=== PATIENT | female | born 1975 | race Caucasian/White ===

== ENCOUNTER 2017-01-11 16:23 | Observation (INO) ==
[2017-01-11] MEDS ORDERED: Aspirin 81 MG TAB.CHEW PO ONE (16:50)
[2017-01-11] MEDS ORDERED: Nitroglycerin 0.4 MG TAB.SUBL SL PRN (16:50)
--- NOTE | 2017-01-11 17:07 | Emergency Department Note ---
Disposition Clinical Impression: Abnormal EKG Chest pain Qualifiers: Chest pain type: chest pain on breathing Qualified Code(s): R07.1 - Chest pain on breathing; R07.81 - Pleurodynia Right knee pain Qualifiers: Chronicity: acute Qualified Code(s): M25.561 - Pain in right knee Disposition: Admitted As Inpatient Condition: Fair Time of Disposition: 21:16 Chest Pain HPI - General Chief Complaint: ED Chest Pain Stated Complaint: Chest Pain Source: patient Limitations: no limitations Vital Signs Reviewed: Yes Nursing Notes Reviewed: Yes - History of Present Illness HPI Narrative: Patient is a 41-year-old female who drove to the ED for just complaint of chest pain 4 days. Patient states pain started suddenly 4 days ago left upper Arava chest and underneath her left breast along inframammary line. Patient states pain 7 out of 10 sharp with pressure and pleuritic. Patient states taking deep breaths worsens pain. Patient states her symptoms are worse today. Patient states this has never happened before. Patient has no previous cardiac history. Patient smokes half pack a day, patient denies illicit drug use and alcohol use. Patient has no family history for sudden cardiac arrest or any family members from cardiac rest at a young age Severity scale (1-10): 10 - Related Data Home Medications Medication Instructions Recorded Confirmed ALPRAZolam [Xanax 1 MG Tablet] 1 mg PO BID PRN 08/03/16 08/03/16 Allergies Allergy/AdvReac Type Severity Reaction Status Date / Time No Known Allergies Allergy Verified 12/04/15 20:15 Review of Systems: Patient states that place her hands above her head increases her discomfort. Patient denies any fevers, chills, nausea, vomiting, diarrhea. All systems ED: reviewed and negative except as stated. 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 - Social History Smoking Status: Current every day smoker Alcohol use: Reports: none Drug use: Reports: none Physical Exam Vital Signs Temperature 97.7 F 01/11/17 16:24 Pulse Rate 68 01/11/17 16:24 Respiratory Rate 16 01/11/17 16:24 Blood Pressure 106/72 01/11/17 16:24 O2 Sat by Pulse Oximetry 99 01/11/17 16:24 Temperature 97.7 F 01/11/17 16:24 Pulse Rate 68 01/11/17 16:24 Respiratory Rate 16 01/11/17 16:24 Blood Pressure 106/72 01/11/17 16:24 O2 Sat by Pulse Oximetry 99 01/11/17 16:24 Oxygen Delivery Oxygen Delivery Room Air -General Appearance: Patient is a 41-year-old female is alert and oriented 3 and in no acute distress. Patient appears uncountable secondary to chest discomfort patient is nondiaphoretic -Neurological exam: Cranial nerves II-12 intact, no focal deficits observed, strength equal 5/5 bilaterally in upper and lower extremities, cerebellar motion test negative. Negative loss of sensation - Head Head exam: atraumatic, normocephalic, normal inspection - Eye Eye exam: Present: normal appearance, PERRL, EOMI, negative for scleral icterus negative for conjunctival pallor - ENT ENT exam: normal exam, normal oropharynx, mucous membranes moist - Neck Neck exam: Present: normal inspection, full ROM, trachea midline, negative JVD - Chest Chest inspection: Present: Patient has bilateral equal rise and fall of chest wall. Non-tender to palpation. - Respiratory Respiratory exam: Clear to auscultation bilaterally without wheezes rales or rhonchi. Patient winces secondary to discomfort with taking a deep breath and favors the left side Cardiovascular Cardiovascular exam: Present: regular rate, normal rhythm, normal heart sounds, without murmurs rubs or gallops. - Abdominal Exam Abdominal exam: Present: soft, nondistended, Non-Tender light and deep palpation in all quadrants. Bowel sounds normoactive throughout all 4 quadrants. Negative for hyper or hyperresonance. - Extremities Exam Extremities exam: Present: normal inspection, full ROM, radial pulses equal bilaterally. Pedal pulses equal bilaterally no pedal edema - Back Exam Back exam: Present: normal inspection, full ROM. Absent: tenderness, CVA tenderness (R), CVA tenderness (L) - Psychiatric Psychiatric exam: Present: normal affect, normal mood - Skin Skin exam: Present: warm, dry, intact, normal color - General Limitations: no limitations General appearance: alert, in no apparent distress Course - Reevaluation(s) Reevaluation #1: Cardiac workup ordered labs, chest x-ray, troponin Time: 17:13 Reevaluation #2: Awaiting Nitrol trial Time: 17:26 Reevaluation #3: Patient received 1 dose of nitroglycerin with no effect. We will repeat every 5 minutes and reassessed Time: 17:39 - Consultations Consultation #1: Patient was sent for admission by Lucila MEJIA Time: 18:48 Consultation #2: Patient's case was discussed with Dr. Greco the dish person who recommended admitting patient for troponin trending Time: 17:00 Vital Signs Temperature 97.7 F 01/11/17 16:24 Pulse Rate 68 01/11/17 16:24 Respiratory Rate 16 01/11/17 16:24 Blood Pressure 106/72 01/11/17 16:24 O2 Sat by Pulse Oximetry 99 01/11/17 16:24 Temperature 97.7 F 01/11/17 16:24 Pulse Rate 65 01/11/17 18:28 Respiratory Rate 17 01/11/17 19:00 Blood Pressure 106/96 01/11/17 19:00 O2 Sat by Pulse Oximetry 99 01/11/17 18:28 Oxygen Delivery Oxygen Delivery Room Air Chest Pain - MDM Narrative Medical decision making narrative: Patient is concerning for chest pain secondary to possible RI, or dissection, PE , pneumonia Patient denies any recent fevers chills nausea vomiting diarrhea or signs of infection etiology. Patient does have pleuritic type chest pain. Patient has increased discomfort when taking a deep breath on left lower lung neumann. Patient has no previous history for DVT or PE. Patient denies any rheumatologic or hematologic abnormalities edema and no prior cardiac history. Ordered CBC, BMP, troponin, chest x-ray, repeat EKG, nitroglycerin trial, IV normal saline. Patient's heart score is 3 Patient had right knee pain complaint and x-ray showed no abnormalities Patient had no resolution from nitroglycerin trial, patient is given IV morphine which seemed to help. Dr. Greco of cardiology was consulted secondary to abnormal EKG showing acute RI and read and patient's persistent chest pain. Dr. Greco's recommendation was to admit to hospitalist for trending of troponins. Patient understands and agrees to treatment and plan and accepts decision to admit to the hospital Patient was accepted to hospitalist for further workup and treatment. - Lab Data Lab results reviewed: Yes I reviewed the patient's lab results. Lab results narrative: Short CBC 01/11/17 Range/Units 16:58 WBC 8.9 (4.3-11.1) K/mcL Hgb 13.8 (11.5-15.4) g/dL Hct 41.2 (35.3-44.9) % Plt Count 218 (140-400) K/mcL Neutrophils # 5.1 (1.6-8.9) K/mcL BMP 01/11/17 Range/Units 16:58 Sodium 138 (136-145) mEq/L Potassium 3.7 (3.5-4.5) mEq/L Chloride 105 (98-109) mEq/L Carbon Dioxide 26 (19-29) mEq/L BUN 10 (7-20) mg/dL Creatinine 0.72 (0.57-1.11) mg/dL Glucose 59 L (70-99) mg/dL Calcium 9.1 (8.6-10.8) mg/dL Cardiac Enzymes 01/11/17 Range/Units 16:58 Troponin I 0.00 (0-0.03) ng/mL Result diagrams: 01/11/17 16:58 01/11/17 16:58 Lab Results 01/11/17 01/11/17 01/11/17 Range/Units 16:58 16:58 16:58 WBC 8.9 (4.3-11.1) K/mcL RBC 4.54 (3.82-4.97) M/mcL Hgb 13.8 (11.5-15.4) g/dL Hct 41.2 (35.3-44.9) % MCV 90.7 (83.0-100.0) fL MCH 30.4 (28.0-33.3) pg MCHC 33.5 (31.6-35.5) g/dL RDW 13.2 (11.5-14.5) % Plt Count 218 (140-400) K/mcL MPV 10.8 (9.4-12.4) fL Immature Gran % 0.1 (0-4) % Seg Neutrophils % 57.2 % Lymphocytes % 36.6 % Monocytes % 5.1 % Eosinophils % 0.8 % Basophils % 0.2 % Neutrophils # 5.1 (1.6-8.9) K/mcL Lymphocytes # 3.3 (0.6-4.6) K/mcL Monocytes # 0.5 (0.0-1.3) K/mcL Eosinophils # 0.1 (0.0-0.6) K/mcL Basophils # 0.0 (0.0-0.2) K/mcL D-Dimer (0-500) ng/mLFEU Sodium 138 (136-145) mEq/L Potassium 3.7 (3.5-4.5) mEq/L Chloride 105 (98-109) mEq/L Carbon Dioxide 26 (19-29) mEq/L BUN 10 (7-20) mg/dL Creatinine 0.72 (0.57-1.11) mg/dL Est GFR ( Amer) > 60 (> 60) Est GFR (Non-Af Amer) > 60 (> 60) BUN/Creatinine Ratio 14 (6-26) Glucose 59 L (70-99) mg/dL Calculated Osmolality 283 (280-300) Calcium 9.1 (8.6-10.8) mg/dL Troponin I 0.00 (0-0.03) ng/mL Lipase 43 (8-78) Units/L TSH 0.473 (0.350-4.840) mcIU/mL /01/20 Range/Units 16:58 WBC (4.3-11.1) K/mcL RBC (3.82-4.97) M/mcL Hgb (11.5-15.4) g/dL Hct (35.3-44.9) % MCV (83.0-100.0) fL MCH (28.0-33.3) pg MCHC (31.6-35.5) g/dL RDW (11.5-14.5) % Plt Count (140-400) K/mcL MPV (9.4-12.4) fL Immature Gran % (0-4) % Seg Neutrophils % % Lymphocytes % % Monocytes % % Eosinophils % % Basophils % % Neutrophils # (1.6-8.9) K/mcL Lymphocytes # (0.6-4.6) K/mcL Monocytes # (0.0-1.3) K/mcL Eosinophils # (0.0-0.6) K/mcL Basophils # (0.0-0.2) K/mcL D-Dimer 325 (0-500) ng/mLFEU Sodium (136-145) mEq/L Potassium (3.5-4.5) mEq/L Chloride (98-109) mEq/L Carbon Dioxide (19-29) mEq/L BUN (7-20) mg/dL Creatinine (0.57-1.11) mg/dL Est GFR ( Amer) (> 60) Est GFR (Non-Af Amer) (> 60) BUN/Creatinine Ratio (6-26) Glucose (70-99) mg/dL Calculated Osmolality (280-300) Calcium (8.6-10.8) mg/dL Troponin I (0-0.03) ng/mL Lipase (8-78) Units/L TSH (0.350-4.840) mcIU/mL - Radiology Data Radiology results reviewed: Yes I reviewed the patient's radiology results. Chest X-Ray 01/11/17 16:28 IMPRESSION: No acute process. D/ / Ross Crowe MD / Ross Crowe MD Interpreting Provider: Ross Crowe MD Knee X-Ray 01/11/17 17:07 IMPRESSION: No acute abnormality of the knee. D/ / Ross Crowe MD / Ross Crowe MD Interpreting Provider: Ross Crowe MD - EKG Data EKG attestation: Yes I reviewed and interpreted this EKG. EKG results narrative: EKG taken 01/11/2017 at 1630 hrs. shows a sinus rhythm with mild ST elevation in V1 and V2, inverted T waves in aVR and aVL no previous EKG for comparison. Repeat EKG taken in January 2017 1650 hrs. shows no change from previous EKG Heart Score - Score History: Moderately Suspicious EKG: Non Specific repolarisation Disturbance Age: Less than 45 Risk Factors: 1-2 risk factors Troponin: Less than normal limit HEART Score Total: 3
[2017-01-11] MEDS ORDERED: Aspirin 325 MG TABLET PO ONE (17:13)
[2017-01-11] MEDS ORDERED: *HR* Heparin 5,000 UNIT/ML VIAL IVP PRN ×2 (17:13)
[2017-01-11] MEDS ORDERED: 0.9 % Sodium Chloride 1,000 ML IVC ONE (17:13)
[2017-01-11] MEDS ORDERED: *HR* Heparin 5,000 UNIT/ML VIAL IVP ONE (17:13)
[2017-01-11 17:14] LABS: Basophils % 0.2 %; Eosinophils # 0.1 K/mcL (0.0-0.6); Eosinophils % 0.8 %; Hematocrit 41.2 % (35.3-44.9); Hemoglobin 13.8 g/dL (11.5-15.4); Immature Granulocytes % 0.1 % (0-4); Lymphocytes # 3.3 K/mcL (0.6-4.6); Lymphocytes % 36.6 %; Mean Corpuscular HGB Conc 33.5 g/dL (31.6-35.5); Mean Corpuscular Hemoglobin 30.4 pg (28.0-33.3); Mean Corpuscular Volume 90.7 fL (83.0-100.0); Mean Platelet Volume 10.8 fL (9.4-12.4); Monocytes # 0.5 K/mcL (0.0-1.3); Monocytes % 5.1 %; Neutrophils # 5.1 K/mcL (1.6-8.9); Platelet Count 218 K/mcL (140-400); Red Blood Count 4.54 M/mcL (3.82-4.97); Red Cell Distribution Width 13.2 % (11.5-14.5); Segmented Neutrophils % 57.2 %
[2017-01-11] MEDS ORDERED: Heparin 25,000 UNIT/500 ML D5W 25,000 UNIT/500 ML MLS IVC SCH (17:15)
[2017-01-11 17:22] LABS: BUN/Creatinine Ratio 14 (6-26); Blood Urea Nitrogen 10 mg/dL (7-20); Calcium 9.1 mg/dL (8.6-10.8); Carbon Dioxide 26 mEq/L (19-29); Chloride 105 mEq/L (98-109); Glucose 59 mg/dL (70-99); Osmolality,Calculated 283 (280-300); Potassium 3.7 mEq/L (3.5-4.5); Sodium 138 mEq/L (136-145); eGFR For African Americans > 60 (> 60); eGFR For Non-African Americans > 60 (> 60)
[2017-01-11] MEDS ORDERED: Ondansetron 4 MG/2 ML VIAL IVP ONE (17:36)
[2017-01-11] MEDS ORDERED: *HR* Morphine 2 MG/ML SYRINGE IVP PRN (17:37)
[2017-01-11 17:46] LABS: Thyroid Stimulating Hormone 0.473 mcIU/mL (0.350-4.840)
[2017-01-11 18:20] LABS: Lipase 43 Units/L (8-78)
[2017-01-11] MEDS ORDERED: Ketorolac 15 MG/ML VIAL IVP ONE (18:47)
[2017-01-11] MEDS ORDERED: Naloxone 0.4 MG/ML INJ IVP PRN (21:08)
[2017-01-11] MEDS ORDERED: tiZANidine 4 MG TABLET PO PRN (21:13)
[2017-01-11] MEDS ORDERED: D5% in 0.45% NACL 1,000 ML IVC SCH (21:15)
[2017-01-11] MEDS ORDERED: 0.9 % Sodium Chloride 1,000 ML IVC SCH (21:15)
--- NOTE | 2017-01-11 21:24 | Internal Med History&Physical ---
Date of Encounter: 01/11/17 Time of Encounter: 21:17 Assessment and Plan (1) Chest pain Current visit: Yes Status: Acute suspect MSK related given hx. Trial of zanaflex, NSAIDs Qualifiers: Chest pain type: intercostal pain Qualified Code(s): R07.82 - Intercostal pain (2) Abnormal EKG Current visit: Yes Status: Acute trend trop, repeat ekg in the a.m, exercise stress testing, consult cards to eval (3) Right knee pain Current visit: Yes Status: Acute XR was normal in the ED Qualifiers: Chronicity: acute Qualified Code(s): M25.561 - Pain in right knee (4) Anxiety Current visit: Yes Status: Acute xanax Internal Medicine - H&P: HPI Chief complaint: Chest pain History of present illness: Ms. Serrano is a 41 year old female with hx of anxiety who presents with chest pain evaluation. She started to noticed left sided chest pain under left breast approx 4 days ago with a pleuritic component with deep breathing. Today, she was reaching up to pull the string to the attic when she suffered from aggravation of chest pain. It appears that she was able to palpate a tender spot around left breast. Described as sharp, localized and without radiation. May be associated with postural changes. She denies any recent long distance travel/hospitalization/risk factors. Denies any personal of family hx of CAD/ [place]. In the ED, she reports with nitro helped. She smokes 1/2 PPD for a many years. D-dimer in ED 325. EKG was abnormal with rate 63 personally reviewed, T- wave inversion and possible ischemic changes. Trop normal. Past Med Surg Social Fam HX - Past Medical History Medical history: other Psychiatric history: anxiety - Past Surgical History Surgical History: hysterectomy - Social History Smoking Status: Current every day smoker Packs per day: 0.5-1 Smokeless Tobacco Status: No Alcohol use: none Drug use: none - Family History Mother Living Status: Age at : 63 Hx Family Cardiac Disorders: No Hx Family Respiratory Disorders: Yes Hx Family Cancer: Yes Hx Family Endocrine Disorder: No Hx Family Musculoskeletal Disorders: No Hx Family Neuromuscular Disorders: No Hx Family Neurologic Disorders: No Hx Family HEENT Disorders: No Hx Family Autoimmune Disorders: Yes Hx Family Reproductive Disorders: No Hx Family Psychosocial Disorders: No Hx Family Medical Disorders: No Internal Medicine - H&P: Meds ALPRAZolam [Xanax 1 MG Tablet] 1 mg PO QID 08/03/16 [History] Allergies No Known Allergies Allergy (Verified 12/04/15 20:15) All Systems PM: A 10-system review of systems was performed and is negative for pertinent findings except as documented above in the HPI. Review of systems: ROS 14 point review of systems reviewed as best as possible given presentation. Pertinent positive or negative as per HPI or otherwise reviewed as negative - Constitutional Vitals: Temp Pulse Resp BP Pulse Ox 97.7 F 65 17 106/96 99 01/11/17 16:24 01/11/17 18:28 01/11/17 19:00 01/11/17 19:00 01/11/17 18:28 Exam: General - AAO x 3 Psych - Appropriate affect/speech. No agitation Eyes - JOVANNA. Eye lids intact. No scleral icterus ENT - Oral mucosa pink, dentition intact. External ear clear/dry/intact. No thyromegaly Lymphatics - No cervical/inguinal lympadenopathy Neuro - No gross peripheral or central neuro deficits with intact CN 2-12 exam Heart - Sinus. RRR. S1 and S2 present. No added HS/murmurs appreciated. No elevated JVD appreciated. No calf swellings/erythema Lung - Adequate air entry b/l, No crackes/wheezes appreciated GI - Soft, non-tender. No hepatosplenomegaly/ascities. BS+ - No CVA/suprapubic tenderness or palpable bladder distension Skin - Intact. No rash/petechiae/ecchymosis. Warm extremities MSK - Tender spot along left breast. Joints with normal ROM. No joint swellings Internal Med - H&P Results - Labs CBC & Chem 7: 01/11/17 16:58 01/11/17 16:58
[2017-01-11] MEDS ORDERED: Ibuprofen 400 MG TABLET PO PRN (21:27)
--- NOTE | 2017-01-11 21:46 | Emergency Department Note ---
START Narrative - START START: I examined this patient and my medical decision-making was reviewed with the Resident Physician. I agree with the documented findings, disposition and treatment plan as described except to the extent set forth below. In summary 41 -year-old female with chest pain for 4 days. Her pain is atypical in nature. She has no inspiratory or pleuritic pain. Her EKG is very abnormal on arrival and she has questionable elevation in the anterior leads. She does not meet STEMI criteria. I did immediately contact the sales professional Dr. Greco who has evaluated the EKG and agrees that this is not a STEMI. We will admit the patient for further evaluation. Cardiac biomarkers are negative. She did receive a nitroglycerin trial as well as aspirin. Morphine was a geotechnical intern for pain. Serial EKGs were obtained emergency department which showed no evidence of worsening EKG changes. I am concerned about T-wave pathology in the inferior leads as well as atypical changes in V1 and V2. Patient will need cardiology consultation for abnormal EKG in the setting of chest pain. Greater than 35 minutes of critical care time was spent resuscitating this female patient with abnormal EKG findings requiring nitroglycerin administration. This was excluding billable procedures.
[2017-01-11] MEDS: ALPRAZolam 1 MG TABLET PO SCH (22:07)
[2017-01-12 06:23] VITALS: BP 110/74
[2017-01-12] MEDS ORDERED: Nicotine 14 MG PATCH.TD24 TD SCH (09:00)
[2017-01-12] MEDS: ALPRAZolam 1 MG TABLET PO SCH (09:22)
[2017-01-12 09:45] LABS: Basophils % 0.3 %; Eosinophils # 0.1 K/mcL (0.0-0.6); Eosinophils % 1.6 %; Hematocrit 40.8 % (35.3-44.9); Hemoglobin 13.9 g/dL (11.5-15.4); Immature Granulocytes % 0.3 % (0-4); Lymphocytes # 2.3 K/mcL (0.6-4.6); Lymphocytes % 32.9 %; Mean Corpuscular HGB Conc 34.1 g/dL (31.6-35.5); Mean Corpuscular Hemoglobin 31.2 pg (28.0-33.3); Mean Corpuscular Volume 91.7 fL (83.0-100.0); Mean Platelet Volume 11.6 fL (9.4-12.4); Monocytes # 0.4 K/mcL (0.0-1.3); Monocytes % 6.3 %; Neutrophils # 4.1 K/mcL (1.6-8.9); Platelet Count 210 K/mcL (140-400); Red Blood Count 4.45 M/mcL (3.82-4.97); Red Cell Distribution Width 13.4 % (11.5-14.5); Segmented Neutrophils % 58.6 %
--- NOTE | 2017-01-12 09:55 | Nuclear Medicine Stress Report ---
Exercise Nuclear Stress Name: Flora Serrano Date of Study: 01/12/2017 Date: 1975 Ht: 66.0 in Medical Record#: [id number] Age: 41 Wt: 135.0 lb Gender: Female Order #: [id number] Location: [facility] IP Room: [facility] Supervising Provider: Kandice Boucher CNP Reading Physician: Chuy Carrion DO, MARLO ANDERSON FASNC Ordering Physician: Samuel Griffin MD Primary Care Physician: None Stress Technologist: Pedrito Chris CRT Vegetable Buncher: Lucy Cruz Indications: Chest Pain Impression: Exercise ECG is negative for ischemia. The exercise capacity was good. Chest discomfort at rest. Intensity of chest discomfort did not change with exercise. Gated EF = 72%. Perfusion imaging was negative for ischemia or infarct. History: History of Smoking Stress Test Summary: Stress Test Type: Treadmill Baseline Information: Initial Heart Rate: 57 Blood Pressure: 130/64 Stress Information: Stress Time: 10 min 01 sec Test Terminated Due to (primary): Dyspnea Maximum Blood Pressure: 158/72 Maximum Heart Rate: 161 Percent Maximum Heart Rate Achieved: 90 Double Product: [id number] METS Reached: 10.9 Symptoms: Chest pain Nuclear Summary: SPECT myocardial perfusion imaging using Tc99m Sestamibi given intravenously was performed at rest and following cardiac stress testing. The resting images were obtained following initial dose of 11.4 mCi. Following stress an additional dose of 35.6 mCi was given at peak exercise or 30 seconds post regadenoson infusion. Medication Given: Time Medication Dose Units Route Findings: Stress Note * Resting ECG demonstrated normal sinus rhythm. * No baseline arrhythmias were noted. * Exercise ECG is negative for ischemia. * No arrhythmias were noted during stress. * The exercise capacity was good. * Chest discomfort at rest. Intensity of chest discomfort did not change with exercise. Hemodynamic responses * Normal hemodynamic responses to exercise. Study Quality * Study quality is average. Gated EF % * Gated EF = 72%. Left Ventricle * The left ventricle is not dilated. * LVEDV = 81 mL. NORMALS * Normal wall motion. * Normal Segmental Perfusion in rest. * Normal segmental perfusion in stress. TID * No evidence of transient ischemic dilatation. TID ratio * TID ratio = 0.98. Lung Uptake * There is no evidence of increase lung uptake. Updated by Chuy Carrion DO, MONICA, MARLO, OSWALDO on 01/12/2017 9:49:05 AM electronically signed on 01/12/2017 9:49:44 AM with status of Final
[2017-01-12 09:57] LABS: BUN/Creatinine Ratio 13 (6-26); Blood Urea Nitrogen 9 mg/dL (7-20); Calcium 8.4 mg/dL (8.6-10.8); Carbon Dioxide 24 mEq/L (19-29); Chloride 108 mEq/L (98-109); Glucose 72 mg/dL (70-99); Magnesium 1.7 mg/dL (1.6-2.6); Osmolality,Calculated 287 (280-300); Potassium 4.1 mEq/L (3.5-4.5); Sodium 140 mEq/L (136-145); eGFR For African Americans > 60 (> 60); eGFR For Non-African Americans > 60 (> 60)
--- NOTE | 2017-01-12 11:39 | Discharge Summary ---
Date of Encounter: 01/12/17 Time of Encounter: 11:00 - Discharge Diagnosis (1) Chest pain Priority: Primary Status: Acute Qualifiers: Chest pain type: other chest pain Qualified Code(s): R07.89 - Other chest pain; R07.8 - Other chest pain (2) Abnormal EKG Priority: Primary Status: Chronic (3) Tobacco abuse Priority: Secondary Status: Chronic - Discharge Medications Prescriptions: Nicotine Patch [Nicoderm] 21 mg TD DAILY #20 patch.td24 Home Medications: ALPRAZolam [Xanax 1 MG Tablet] 1 mg PO QID 08/03/16 [History] Ibuprofen [Motrin] 400 mg PO Q4HR PRN tab 01/12/17 [Rx] Nicotine Patch [Nicoderm] 21 mg TD DAILY #20 patch.td24 01/12/17 [Rx] Allergies/Adverse Reactions: Allergies No Known Allergies Allergy (Verified 12/04/15 20:15) Procedures/tests Complete & Pending: Procedures Performed prior 72 hours Category Date Time Status NM susannah perf SPECT multi [NM] Routine Exams 01/11/17 21:14 Taken ECG 12 lead ECG [ECG] AM 0600 Y 01/12/17 06:00 Ordered SP exercise nuclear stress Routine Y 01/12/17 08:00 Completed Date of admission: 01/11/17 18:29 Primary care physician: PCP NONE Discharging clinician: Amanda Cruz Anticipated date of discharge: 01/12/17 - Patient Status Disposition: Home, Self-Care Condition: Fair Functional capacity at discharge: independent ambulation Overall status at discharge: patient is progressing back to baseline - Discharge Instructions Instructions: Chest Pain (DC), Anxiety (DC) Follow Up With: Erika Burt DO [Resident] - 01/20/17 10:00 am - Diet and Activity Activity: resume usual activities as tolerated Diet: advance to your usual diet Hospital course: Ms. Serrano is a 41 year old female with no significant past medical history , was admitted with left-sided chest pain. Patient had exacerbation of chest pain after trying to reach an attic door, which is suggestive of musculoskeletal complement to her chest pain. Initial labs, chest x-ray revealed no acute abnormality. EKG was suggestive of old anterolateral DC. Telemetry monitoring remained uneventful and serial troponins remained negative. Patient underwent exercise nuclear stress testing, which was negative for ischemia or infarct. Patient is otherwise medically stable for discharge and her chest pain is deemed more musculoskeletal in origin at this time. Time spent discussing smoking cessation with patient: 3 to 10 minutes - Time Spent with Patient Total time spent providing and/or coordinating discharge services: Greater than 30 minutes (35 min) - Constitutional Vitals: Temp Pulse Resp BP Pulse Ox 97.8 F 56 14 110/74 97 01/12/17 06:14 01/12/17 06:14 01/12/17 06:14 01/12/17 06:14 01/12/17 09:35 General appearance: Present: A&O X 3 - Respiratory Respiratory exam: Present: CTAB. Absent: accessory muscle use, rales, rhonchi, wheezes - Cardiovascular Cardiovascular exam: Present: RRR, +S1, +S2. Absent: diastolic murmur, gallop, rubs, systolic murmur
--- NOTE | 2017-01-12 20:19 | Electrocardiograph Report ---
[address] [place] [address] Test Date: 2017-01-11 Pat Name: Flora Serrano Department: 105 Room: 2NE27 Gender: F Receiving Lead: MSC : 1975 Requested By: Anali Paniagua Order Number: [id number] Reading MD: Fantasma John MD Measurements Intervals [place] Rate: 70 P: 74 VA: 119 QRS: 112 QRSD: 103 T: 60 QT: 396 QTc: 417 Interpretive Statements SINUS RHYTHM WITH SHORT VA INTERVAL RIGHT ATRIAL ENLARGEMENT LEFT ATRIAL ENLARGEMENT PROBABLY OLD ANTEROLATERAL MYOCARDIAL INFARCTION, OF INDETERMINATE AGE Electronically Signed On 01-12-2017 20:17:48 EDT by Fantasma John MD
--- NOTE | 2017-01-12 20:20 | Electrocardiograph Report ---
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
== END 2017-01-12 11:54 | disposition home or self-care (01) ==
LOC: 2NENU 16:23 → EMEROO 16:23 → SUATTDRO 18:29 → 2NENU 19:25
PROVIDERS: ADMIT Internal Medicine Hematology & Oncology; ATTEND Internal Medicine